=== PATIENT | female | born 2000 | race Caucasian/White ===

== ENCOUNTER 2020-09-28 02:00 | Emergency (ER) | payer SELFPAY ==
--- NOTE | 2020-09-28 02:21 | NUR ---
Pt with GCS 8, intermittent n/v pos gag, suction at bedside, would not take NPA, left lateral position. Friend at bedside. Will continue to monitor.
--- NOTE | 2020-09-28 02:34 | NUR ---
VS remain stable, responsive to painful stimuli only, does not follow commands. Pos gag, suction remains on and at HOB.
--- NOTE | 2020-09-28 03:08 | NUR ---
Pt wakes up with loud verbal now, RR equal and unlabored. Fiance at bedside, agrees with POC to MTF and when safely can navigate community to be dc.
[2020-09-28 04:20] VITALS: BP 125/68
--- NOTE | 2020-09-28 04:20 | NUR ---
Pt now wakes up with loud verbal/touch, will open eyes, slight following of commands. VSS. Fiance at bedside.
== END 2020-09-28 05:22 | disposition home or self-care (01) ==
LOC: ED 02:30
DX: F10.129 Alcohol abuse with intoxication, unspecified (principal); F17.210 Nicotine dependence, cigarettes, uncomplicated; Y90.0 Blood alcohol level of less than 20 mg/100 ml
CPT/HCPCS: 99406